=== PATIENT | male | born 1950 | race Caucasian/White ===

== ENCOUNTER 2017-02-02 17:54 | Emergency (ER) | payer OTHER ==
[2017-02-02 18:01] VITALS: TEMP 98.1
[2017-02-02] MEDS ORDERED: NS 1,000 ML IV ONE (18:21)
--- NOTE | 2017-02-02 18:25 | EDPHY ---
General - History Smoking Status: Never smoked Time Seen by Provider: 02/02/17 18:19 Narrative: CHIEF COMPLAINT: back pain, skin pain, lower extremity weakness and pain HISTORY OF PRESENT ILLNESS: patient has several weeks duration of dizziness and mild headache. The symptoms have been worked up at an outside facility with an MRI that was reportedly normal. He also had several EKGs over the past 10 days that were all normal. Discharged home with a prescription of Augmentin that reportedly helped his dizziness. No syncope. No chest pain. No shortness of breath. Also has a 24-36 hour complaint of right lower extremity he tingling, pain, and sensitive skin. This is associated with low back pain that is also worsened. No trauma or injury to the back. No incontinence of bowel or bladder. He does have difficulty voiding at this time. He also has sexual dysfunction with inability to obtain an erection. No fever or chills. No IV drug use. No modifying factors for this. He has had MRI remotely from lumbar region showing abnormalities but he does not have the formal diagnosis. No other associated complaints or modifying factors. REVIEW OF SYSTEMS: Ten systems reviewed and are negative unless otherwise noted in the HPI PERTINENT MEDICAL HISTORY: Cervical stenosis status post fusion, lumbar radiculopathy EXAMINATION General Appearance: Alert, no distress Head: normocephalic, atraumatic Eyes: Pupils equal and round, no conjunctival pallor or injection ENT, Mouth: Mucous membranes moist. Uvula midline. Neck: Normal inspection, supple, Mild soft tissue tenderness. No midline tenderness. Range of motion intact without pain Respiratory: Lungs are clear to auscultation Cardiovascular: Regular rate and rhythm. Pulses intact distally. No carotid bruits. Symmetric radial and DP pulses at 2+. Back: Tenderness to palpation of lumbar region primarily L2 through L5. More pronounced on the right. There is no crepitus. No step-off. No deformity. Neurological: A&O . Strength is 4/5 in the right lower extremity involving the knee, hip and ankle. Strength is 5/5 in the left lower extremity respectively. There is hyperesthesia on the right lower extremity involving the thigh obliquely. Sensory intact in left lower extremity. Skin: Warm and dry, no rash Extremities: tenderness to palpation of the right anterior thigh. Range of motion of the right and left hips are symmetric, range of motion of both knees were symmetric. Range of motion of both ankles symmetric. Psychiatric: Mood and affect normal DIFFERENTIAL DIAGNOSES: Including but not limited to Lumbar radiculopathy, acute cord compression, dizziness, dehydration, tension headache, diskitis MDM: 6:20 p.m. right lower extremity weakness, hyperesthesia, paresthesia and lumbar back pain with radiculopathy into the right thigh. He does report sexual dysfunction with no ability to sustain or even obtain an erection over the past 2 weeks. The skin changes of the right thigh are within the past 36 hours. No incontinence of bowel or bladder. No retention of bowel or bladder. The pain is moderate to severe. Does have a history of known lumbar disc pathology but he does not know at which level, and he does not know the severity. I have ordered an MRI of the lumbar spine. Low suspicion for cauda equina or acute cord compression, but given his complaints we will obtain this MRI. I discussed the case with Dr. Mancera and he will assume care of this patient. he will follow up on the MRI results. Please see his note for final disposition. SUPERVISION: Patient was evaluated in conjunction with the supervising physician. Please see their note for details. (Flo Quintero) Medical Decision Making: Postvoid residual is 115 mL Re-evaluation by me at 9:15 p.m.. Patient and I discussed imaging and lab results. We discussed treatment plan including criteria for return and importance of follow-up and further evaluation. The patient expresses understanding and agreement I considered cauda equina syndrome certainly, radiculopathy, epidural abscess as well as cervical spine stenosis and compression. (Milton Mancera) - Diagnostics Imaging Interpretation: MRI of the lumbar spine shows multilevel degenerative disease. 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 There is moderate canal stenosis at L4-5. There is fairly severe is foraminal stenosis at that same level. C-spine MRI reviewed by me and discussed with Dr. Ca shows no change from previous study of April 2016. There are multiple prior surgeries. There is no evidence for cord compression (Milton Mancera) - Objective Vital Signs: Initial Vital Signs Temperature (C) 98.1 F 02/02/17 17:58 Heart Rate 72 02/02/17 17:58 Respiratory Rate 20 02/02/17 17:58 Blood Pressure 136/78 H 02/02/17 17:58 O2 Sat (%) 94 02/02/17 17:58 O2 Delivery Mode Room Air Allergies/Adverse Reactions: Sulfa (Sulfonamide Antibiotics) Allergy (Intermediate, Verified 02/02/17 17:57) agitation erythromycin base [Erythromycin Base] Allergy (Unknown, Verified 02/02/17 17:57) diff breathing sulfamethoxazole [From Bactrim] Allergy (Unknown, Verified 02/02/17 17:57) SOB trimethoprim [From Bactrim] Allergy (Unknown, Verified 02/02/17 17:57) SOB Home Medications: Medication Instructions Recorded Augmentin 875 MG TAB (*) 02/02/17 oxyCODONE/APAP 5/325 [Percocet 1 tab PO Q4-6PRN PRN #14 tab 02/02/17 5/325] Laboratory Results: Laboratory Results 02/02/17 18:46 02/02/17 18:46 Medications Given: Discontinued Medications Sodium Chloride (Ns) 1,000 mls @ 0 mls/hr IV ONCE ONE PRN Reason: Wide Open Stop: 02/02/17 18:22 Last Admin: 02/02/17 18:47 Dose: 1,000 mls Lorazepam (Ativan) 1 mg PO EDNOW ONE Stop: 02/02/17 18:40 Last Admin: 02/02/17 18:59 Dose: 1 mg Oxycodone/Acetaminophen (Percocet 5/325mg Prepack#4) 1 btl TAKEHOME EDNOW ONE Stop: 02/02/17 21:23 Last Admin: 02/02/17 21:40 Dose: 1 btl Departure - Departure Disposition: Home, Routine, Self-Care Clinical Impression: Lumbar radiculopathy, right Condition: Good Instructions: Lumbar Radiculopathy (ED) Additional Instructions: Percocet as needed for pain. Return for leg weakness, bowel or bladder symptoms that are worsening. Follow up with Dr. Serrano next week. Referrals: NONE *PRIMARY CARE P,. [Primary Care Provider] - As per Instructions Manfred Serrano MD [Medical Doctor] - 5-7 days, call for appt. Prescriptions: oxyCODONE/APAP 5/325 [Percocet 5/325] 1 tab PO Q4-6PRN PRN #14 tab PRN Reason: Pain, Moderate
[2017-02-02] MEDS ORDERED: LORazepam 1 MG TAB PO ONE (18:39)
[2017-02-02 19:03] LABS: % IMMATURE GRANULYOCYTES 0.2 % (0.0-1.1); ABSOLUTE IMMATURE GRANULOCYTES 0.02 10^3/uL (0.00-0.10); ADD DIFF? NO; ADD MORPH? NO; ADD SCAN? NO; ATYPICAL LYMPHOCYTE FLAG 0 (0-99); FRAGMENT RBC FLAG 0 (0-99); HEMATOCRIT 41.3 % (40.0-51.0); HEMOGLOBIN 14.1 g/dL (13.7-17.5); LEFT SHIFT FLG 0 (0-99); LIPEMIA HEMOLYSIS FLAG 90 (0-99); MEAN CELL HEMOGLOBIN 29.6 pg (27.9-34.1); MEAN CELL HEMOGLOBIN CONCENTR. 34.1 g/dL (32.4-36.7); MEAN CELL VOLUME 86.8 fL (81.5-99.8); MEAN PLATELET VOLUME 10.8 fL (8.7-11.7); PLATELET CLUMPS FLAG 0 (0-99); PLATELET COUNT 251 10^3/uL (150-400); RED BLOOD CELL COUNT 4.76 10^6/uL (4.40-6.38); RED CELL DISTRIBUTION WIDTH 12.4 % (11.5-15.2)
[2017-02-02 19:06] LABS: INR 1.03 (0.83-1.16); PROTIME(PATIENT) 13.4 SEC (12.0-15.0)
[2017-02-02 19:07] LABS: APTT 23.3 SEC (23.0-38.0)
[2017-02-02 19:16] LABS: SEDIMENTATION RATE 5 MM/HR (0-20)
[2017-02-02 19:44] LABS: ANION GAP 10 mEq/L (8-16); C-REACTIVE PROTEIN < 5.0 mg/L (<10.0); CALCIUM 9.8 mg/dL (8.5-10.4); CARBON DIOXIDE 29 mEq/l (22-31); CHLORIDE 100 mEq/L (97-110); CREATININE 1.1 mg/dL (0.7-1.3); GLOMERULAR FILTRATION RATE > 60; GLUCOSE 95 mg/dL (70-100); POTASSIUM 4.1 mEq/L (3.5-5.2); SODIUM 139 mEq/L (134-144)
[2017-02-02] MEDS ORDERED: OXYCODONE/APAP 5/325MG PREPACK#4 BTL TAKEHOME ONE (21:22)
[2017-02-02 21:42] VITALS: BP 138/77; PULSE 66; RESP 18; O2SAT 96
== END 2017-02-02 21:41 | disposition home or self-care (01) ==
DX: M54.16 Radiculopathy, lumbar region (principal)

== ENCOUNTER 2018-03-10 06:09 | Emergency (ER) | payer OTHER, MEDICARE ==
[2018-03-10 06:26] VITALS: BP 117/89
--- NOTE | 2018-03-10 06:54 | EDPHY ---
H & P Stated Complaint: CONSTIPATION X7 DAY, LOW BACK PAIN, NUMBNESS GROIN Time Seen by Provider: 03/10/18 06:55 HPI/ROS: HPI The patient presents with constipation which has been present for the last 2-3 weeks though worse over the last 7 days. His symptoms began with urinary retention, he was seen in the emergency department at another hospital for this and diagnosed with an enlarged prostate and constipation. He was started on Flomax, however had an allergic reaction to this and has been off of it for the last several days. Flomax did improve his urinary retention. Is due to his constipation that has been present for the last several weeks he has taken magnesium citrate, MiraLax, suppositories, stool softeners without much stool output. He says daily has a small amount of hard stool as out though never completely empties. He does have a diagnosis of IBS. He is followed by a bulk picker and had a negative colonoscopy within the last 6 months. He says his constipation is now causing some distention of his abdomen with nausea. Two days ago he went to another emergency department, there CT scan and labs were done and were normal except for constipation. He did receive morphine then. He was not disimpacted nor did he have an enema. He has been seen by his urologist, primary care doctor and has an upcoming appointment with his bulk picker to discuss more aggressive treatment for IBS. He does report lower back pain which is usual for him. This is not in the midline. He reports some numbness in his groin region. He called his healthcare insurance and talked to an advice person and was instructed to come to the emergency department today because of the constipation that he is having. REVIEW OF SYSTEMS Constitutional: No fever, no chills. Eyes: No discharge. ENT: No sore throat. Cardiovascular: No chest pain, no palpitations. Respiratory: No cough, no shortness of breath. Gastrointestinal: See HPI Genitourinary: No hematuria. Musculoskeletal: No back pain. Skin: No rashes. Neurological: No headache. PMHx: History of IBS, history of L5 compression of some sort. Soc Hx: Lives with his PHYSICAL General Appearance: Alert, no distress Eyes: Pupils equal and round no pallor or injection ENT, Mouth: Mucous membranes moist Respiratory: There are no retractions, lungs are clear to auscultation Cardiovascular: Regular rate and rhythm Back: There is no midline spinal tenderness Gastrointestinal: Abdomen is soft and non-tender, no masses, bowel sounds are normal, abdomen is slightly distended : There is sensation intact throughout his perineum, there is normal rectal tone, there is no stool in the rectal vault Neurological: A&O, moves all extremities Skin: Warm and dry, no rashes Musculoskeletal: Neck is supple non tender Extremities: symmetrical, 5/5 strength of lower extremities which is symmetric Psychiatric: Patient is oriented X 3, there is no agitation Source: Patient Exam Limitations: No limitations - Personal History Current Tetanus/Diphtheria Vaccine: Yes Tetanus Vaccine Date: within 10 years - Medical/Surgical History Hx Asthma: No Hx Chronic Respiratory Disease: No Hx Diabetes: No Hx Cardiac Disease: No Hx Renal Disease: No Hx Cirrhosis: No Hx Alcoholism: No Hx HIV/AIDS: No Hx Splenectomy or Spleen Trauma: No Other PMH: intermittent a-fib. pre diabetic. sleep apnea/CPAP AT NIGHT. LAMINECTOMY/FUSION C3-5. PERIPHERAL NEUROPATHY - Social History Smoking Status: Never smoked Constitutional: Initial Vital Signs Temperature (C) 36.7 C 03/10/18 06:22 Heart Rate 82 03/10/18 06:22 Respiratory Rate 20 03/10/18 06:22 Blood Pressure 117/89 H 03/10/18 06:22 O2 Sat (%) 95 03/10/18 06:22 O2 Delivery Mode Room Air Allergies/Adverse Reactions: Sulfa (Sulfonamide Antibiotics) Allergy (Intermediate, Verified 03/10/18 06:20) agitation erythromycin base [Erythromycin Base] Allergy (Unknown, Verified 03/10/18 06:20) diff breathing sulfamethoxazole [From Bactrim] Allergy (Unknown, Verified 03/10/18 06:20) SOB trimethoprim [From Bactrim] Allergy (Unknown, Verified 03/10/18 06:20) SOB tamsulosin [From Flomax] Allergy (Verified 03/10/18 06:20) Home Medications: Medication Instructions Recorded oxyCODONE/APAP 5/325 [Percocet 1 tab PO Q4-6PRN PRN #14 tab 02/02/17 5/325] Ativan 03/10/18 Medical Decision Making Differential Diagnosis: This is a 67-year-old male with history of IBS, L5 spinal compression fracture possibly?, urinary retention related to likely BPH who presents with constipation for the last 2-3 weeks though worse over the last 1 week. This constipation is not improved with multiple laxatives. He says he has seen his primary care doctor 6-7 times. He has been to the emergency department twice for this, last visit was 2 days ago. He had a CT scan done 2 days ago of his abdomen as well as labs that demonstrated constipation only. On exam, he has no concerning neurologic findings. His abdomen is quite benign. He does not have any abdominal tenderness. Rectal exam shows no stool in the vault. I have offered him an enema here, however he declines. He says he would like to go home and eat breakfast instead. He says he will try an enema later today. He says he is here because he was instructed to by the advice person at his health insurance company because he has not had a bowel movement in 2-3 weeks. However, he has been previously evaluated for this and is having small amount of stool output is over the last several days. He is happy with this plan. He has follow-up with Gastroenterology, Urology, his primary care doctor in the next few days. Departure - Departure Disposition: Home, Routine, Self-Care Clinical Impression: Constipation Qualifiers: Constipation type: unspecified constipation type Qualified Code(s): K59.00 - Constipation, unspecified Lower back pain Qualifiers: Chronicity: chronic Back pain laterality: bilateral Sciatica presence: without sciatica Qualified Code(s): M54.5 - Low back pain Condition: Good Instructions: Constipation (ED), Fleet Enema (ED) Additional Instructions: I recommend you drink plenty of fluids and take a Fleet enema at home today to see if this helps her symptoms. You should return to the emergency department if your worse in any way. Referrals: Jerrod Morgan MD, FACG [Medical Doctor] - As per Instructions Hakeem Galvan MD [Medical Doctor] - As per Instructions Lalit Freedman DO [Non Staff Provider ()] - As per Instructions
== END 2018-03-10 07:16 | disposition home or self-care (01) ==
DX: K59.00 Constipation, unspecified (principal); M54.5 Low back pain

== ENCOUNTER 2018-06-05 14:35 | Emergency (ER) | payer OTHER, MEDICARE ==
[2018-06-05] MEDS ORDERED: ASPIRIN 81 MG CHEWABLE TAB PO ONE (14:47)
[2018-06-05] MEDS ORDERED: NS 500 ML IV ONE (14:47)
--- NOTE | 2018-06-05 14:52 | CPEKG ---
Heart Rate: 61 RR Interval: 984 P-R Interval: 200 QRSD Interval: 96 QT Interval: 404 QTC Interval: 407 P Windsor: 75 QRS Windsor: 58 T Wave Windsor: 49 EKG Severity - NORMAL ECG - EKG Impression: SINUS RHYTHM Electronically Signed By: Indio Mares 05-Jun-2018 22:03:38
[2018-06-05 15:09] LABS: PLATELET COUNT 250 10^3/uL (150-400)
[2018-06-05 15:22] LABS: INR 1.07 (0.83-1.16); PROTIME(PATIENT) 14.1 SEC (12.0-15.0)
--- NOTE | 2018-06-05 15:33 | EDPHY ---
H & P Time Seen by Provider: 06/05/18 14:47 HPI/ROS: HPI Chest discomfort, elevated heart rate. 67-year-old male by private vehicle. He is a patient of Dr. Kenton Tomlin. He reports that he has had intermittent chest discomfort which she describes as a tightness and pressure on and off the last week with associated shortness of breath and some radiation of the pain between his shoulder blades. He reports that he has also had intermittent spikes in his heart rate up to the 180s. He reports that he is recorded this on his apple watch. He was seen by his primary care physician about a week ago for this complaint. He had a unremarkable EKG at that time. He was then sent home. The symptoms continued any was seen in the emergency department at [facility] approximately 3 days ago. After negative workup including a negative troponin which I verified , he was discharged with instructions to follow up with his climate change risk assessor. He has a scheduled appointment with his climate change risk assessor, Dr. Kenton Tomlin, tomorrow. He reports that he again had elevations of his heart rate up into the 180s but denies any associated lightheadedness. He states that this was recorded on his watch. He then this afternoon developed chest discomfort as described above. He called the office of Dr. Kenton Tomlin and was told to come to the emergency department for evaluation. He denies having prior PCI. ROS: Constitutional: No fever, no chills. No weakness. Eyes: No discharge. No changes in vision. ENT: No sore throat. No nasal congestion or rhinorrhea. Respiratory: No cough. As above. Cardiac: As above. Gastrointestinal: No abdominal pain, no vomiting, no diarrhea. Genitourinary: No hematuria. No dysuria or increased frequency with urination. Musculoskeletal: No back pain. No neck pain. No myalgias or arthralgias. Skin: No rashes. Neurological: No headache. No focal weakness or altered sensation. Past medical history: Intermittent AFib. Currently not on anticoagulation. Sleep apnea at night, peripheral neuropathy, cervical fusion and laminectomy from C3 through C5. As above. Social history: Nonsmoker. Here by himself. Physical Exam: General Appearance: Alert, pleasant, no distress. This patient is responding to questions appropriately and in full sentences. This patient appears well- hydrated and well-nourished. Eyes: Pupils equal and round no pallor or injection. No lid edema, erythema or injection. Respiratory: There are no retractions, lungs are clear to auscultation with good air movement bilaterally. Cardiovascular: Regular rate and rhythm. No murmur. Gastrointestinal: Abdomen is soft and nontender, no masses, bowel sounds normal. No focal tenderness at McBurney's point. No Sands sign. Neurological: Motor sensory function is grossly intact. Cranial nerves are normal. Gait is normal. Skin: Warm and dry, no rashes. Musculoskeletal: Neck is supple and nontender. Extremities are symmetrical. All joints range without pain or impingement. Psychiatric: No agitation. No depression. Database: EKG: EKG time is 2:50 p.m.; EKG shows a narrow complex normal sinus rhythm with a ventricular rate of 61. The DE, QRS, QT intervals are within normal limits. There are no ST-T wave changes indicative of ischemic or injury pattern. No evidence of right heart strain. Interpreted by me. Imaging: Procedures: Chest x-ray AP portable; the cardiac mediastinal silhouette is unremarkable. No evidence of infiltrate or pneumothorax. No acute cardiopulmonary disease process noted. Interpreted by me. Emergency department course: Triage vital signs reviewed. The patient is mildly hypertensive. Vital signs otherwise normal. The patient was given 324 mg of chewed aspirin. EKG obtained and reviewed by myself. 3:15 p.m., patient re-evaluated. Resting comfortably at this time. Denies any chest discomfort currently. Vital signs reviewed and are normal. packerhead machine operator shows a narrow complex normal sinus rhythm. 3:50 p.m., patient re-evaluated. Resting comfortably at this time. Denies any chest discomfort or shortness of breath currently. Results of his emergency department workup discussed with him. I discussed admission for observation and further testing overnight. At this time he does not want to be admitted. He does have a follow-up appointment with his climate change risk assessor, Dr. Kenton Tomlin, tomorrow morning at 9:30 a.m.. He is requesting discharge at this time. He does not want to be admitted. The patient competently engages in shared decision making. They demonstrate capacitance to make decisions. The patient will follow up as scheduled with his climate change risk assessor in the morning. Return to emergency department precautions were thoroughly reviewed with him. All of his questions were answered. He was discharged in good condition. Differential Diagnosis: The differential diagnosis on this patient includes but is not limited to acute coronary syndrome, anxiety reaction, atrial fibrillation. Pulmonary embolism, aortic dissection unlikely. This represents a partial list of diagnoses considered. These considerations are based on history, physical exam, past history, reassessment and diagnostic testing. Smoking Status: Never smoked Constitutional: Initial Vital Signs Temperature (C) 37.0 C 06/05/18 14:39 Heart Rate 71 06/05/18 14:39 Respiratory Rate 18 06/05/18 14:39 Blood Pressure 144/96 H 06/05/18 14:39 O2 Sat (%) 95 06/05/18 14:39 O2 Delivery Mode Room Air Allergies/Adverse Reactions: Sulfa (Sulfonamide Antibiotics) Allergy (Intermediate, Verified 03/10/18 06:20) agitation erythromycin base [Erythromycin Base] Allergy (Unknown, Verified 03/10/18 06:20) diff breathing sulfamethoxazole [From Bactrim] Allergy (Unknown, Verified 03/10/18 06:20) SOB trimethoprim [From Bactrim] Allergy (Unknown, Verified 03/10/18 06:20) SOB tamsulosin [From Flomax] Allergy (Verified 03/10/18 06:20) Home Medications: Medication Instructions Recorded Aspirin 06/05/18 Ativan 06/05/18 Medical Decision Making - Data Points Laboratory Results: Laboratory Results 06/05/18 14:57 06/05/18 14:57 Medications Given: Discontinued Medications Aspirin (Aspirin) 324 mg PO EDNOW ONE Stop: 06/05/18 14:48 Last Admin: 06/05/18 15:13 Dose: 324 mg Sodium Chloride (Ns) 500 mls @ 1,000 mls/hr IV EDNOW ONE PRN Reason: Protocol Stop: 06/05/18 15:16 Last Admin: 06/05/18 15:12 Dose: 500 mls Point of Care Test Results: Chemistry 06/05/18 15:06 POC Troponin I 0.00 ng/mL ng/mL (0.00-0.08) Departure - Departure Disposition: Home, Routine, Self-Care Clinical Impression: Chest discomfort Condition: Good Instructions: Chest Pain (ED) Additional Instructions: Read and follow provided instructions. Follow-up with your climate change risk assessor, Dr. Kenton Tomlin, as scheduled tomorrow morning at 9:30 a.m. without fail. Continue to use your CPAP machine. Return to the emergency department for return of chest pain, shortness of breath or other serious concerns. Referrals: Kenton Tomlin MD [Medical Doctor] - As per Instructions
[2018-06-05 16:46] VITALS: BP 145/79
== END 2018-06-05 16:52 | disposition home or self-care (01) ==
DX: R07.89 Other chest pain (principal); E86.9 Volume depletion, unspecified
CPT/HCPCS: 84484-PO